=== PATIENT | male | born 1960 | race Caucasian/White ===

== ENCOUNTER 2023-11-19 09:34 | Emergency (ER) | payer OTHER, SELFPAY ==
[2023-11-19 09:40] VITALS: BP 178/99
--- NOTE | 2023-11-19 11:24 | ED.MUSCINJ ---
HPI-Injury
General
Chief Complaint: Soft Tissue Injury
Source: patient
Time Seen by Provider: 11/19/23 10:58
History of Present Illness-Injury
Initial Injury comments:
63-year-old male with past medical history of hypertension and diabetes presenting to the emergency department for evaluation after getting his right ring finger caught in a log splitter causing him to sustain laceration and displacement of the
proximal nail. Patient notes mild bleeding. He is right-hand dominant. Unsure of last tetanus but is declining tetanus vaccine update.
Past History
Past History
ED Past Medical History: HTN and NIDDM
ED Past Surgical History: Orthopedic
Social History
Tobacco: Non-smoker
Alcohol: None
Drug: None
Personal: Single
Living: alone
Review of Systems
Review of Systems
All Other Systems: ROS reviewed and negative except as documented in HPI and ROS
Phy Exam
Physical Exam
Physical Exam:
GENERAL: Alert , in no apparent distress
EYE: conjunctiva clear
Head: Normocephalic atraumatic
NECK: Supple,
ENT: mmm.
LUNGS: no acute respiratory distress
NEUROLOGICAL: Alert and oriented
SKIN: Warm and dry, curvilinear 1 cm laceration along the lateral distal phalanx going towards the distal nail. There is also small displacement of the proximal portion of the nail. Subungual hematoma noted. Bleeding controlled with light pressure
MUSCULOSKELETAL: well perfused.
PSYCH: Normal and appropriate interaction.
Scores
Heart Failure Risk
Heart Failure Risk Score: Not Applicable
Heart Score for Chest Pain Patients
STEMI patient?: Not applicable
Withdrawal Assessment of Alcohol
Withdrawal Assessment Completed?: Not applicable
Injury Course
Orders/Labs/Results
Orders:
Orders
11/19/23 09:42
Finger(s)/Thumb 2 View Rt [CR Finger(s)/thumb Min 2 Vw Rt] Urgent
Comment:
Reason For Exam: crush injury
Indicate Which Finger:: Ring Finger
Procedures
Laceration Closure
Right Fourth Finger:
Status of Wound: clean
Size of Wound in cm: 1
Description of Wound Edges: ragged
Preparation: cleaned with saline
Anesthesia: Digital-Regional
Revision/Debridement: routine- no revision
Type of Closure: single layer closure
Skin Closure Material: 5-0 nylon
Number of sutures: 3
MDM/Problems Addressed
Differential Diagnosis Includes:
Fracture, subungual hematoma, contusion, laceration
MDM/Problems Addressed:
63-year-old male presenting to the emergency department for evaluation after sustaining laceration and nail avulsion after getting his right ring finger caught in nail splitter. Laceration repaired as above. Proximal nail was placed back
underneath the skin fold and dermabonded into place. NSAIDs/Tylenol as needed for pain. Advised patient follow-up with his primary doctor to get his tetanus vaccine updated. Otherwise stable for discharge home. X-ray that was ordered in triage
does show a suspected small fracture of the distal phalanx proximal portion.
*Critical Care Note
Total Time (30-74mins, 75-104mins- exclusive of procedures): Not Applicable
ED Attending Note
-
Portions of this chart may have been created with voice recognition software.� Occasional wrong word or��sound alike� substitutions may have occurred due to the inherent limitations of voice recognition software.
Discharge Plan
Departure
Patient Disposition: Home (Routine Discharge)
Date of Disposition: 11/19/23
Time of Disposition: 11:25
Patient with high blood pressure during this ER visit?: No
Discharge Problem:
Crushing injury of right ring finger, Laceration of right ring finger, Subungual hematoma of right ring finger, Closed fracture of distal phalanx of right ring finger
Instructions: Laceration Repair With Stitches (DC)
Prescriptions:
No Action
erythromycin 5 mg/gram (0.5 %) ointment
1 applic ophthalmic (eye) Q6H Qty: 3.5 0RF
Activity Restrictions/Additional Instructions:
Suture removal in 10-12 days
Interventions
Interventions:
*Risk Screen - Suicide Last Done: 11/19/23 09:40
*General Assessment Last Done: 11/19/23 09:40
*Neglect/Abuse Screening Last Done: 11/19/23 09:40
ED- Fall Risk Assessment Last Done: 11/19/23 11:08
*ED COVID-19 Vaccine History Last Done: 11/19/23 09:40
*Nursing Disposition Last Done: 11/19/23 11:35
ED-Musculoskeletal Assessment Last Done: 11/19/23 11:08
ED-Skin Assessment Last Done: 11/19/23 11:08
Discharge Date and Time
Discharge Date/Time: 11/19/23 11:36
Print Language: MAORI
== END 2023-11-19 11:36 | disposition home or self-care (01) ==
LOC: EMR 09:34
PROVIDERS: EMERGENCY PHYSICIAN Emergency Medicine; FAMILY PHYSICIAN Family Medicine
DX: S62.634B Displaced fracture of distal phalanx of right ring finger, initial encounter for open fracture (principal); S67.194A Crushing injury of right ring finger, initial encounter; S60.141A Contusion of right ring finger with damage to nail, initial encounter; W31.2XXA Contact with powered woodworking and forming machines, initial encounter; I10 Essential (primary) hypertension; E11.9 Type 2 diabetes mellitus without complications
CPT/HCPCS: 99283; 12001; 73140